=== PATIENT | female | born 1990 | race Caucasian/White ===

== ENCOUNTER 2018-04-14 10:58 | Emergency (ER) | payer OTHER ==
[~2018-04-14] VITALS: Ht 162.6 cm; Wt 95.3 kg
[2018-04-14 11:01] VITALS: BP 136/86; Ht 162.6 cm; Wt 95.3 kg
[2018-04-14 11:48] LABS: UA SPECIFIC GRAVITY >=1.030 (1.005-1.035); microscopic required? YES; urine erythrocyte NEGATIVE (NEGATIVE)
[2018-04-14 12:02] LABS: AMPHETAMINE QUAL UR POSITIVE (See below)
== END 2018-04-14 11:26 | disposition left against medical advice (07) ==
LOC: ED 10:58
PROVIDERS: Emergency Medicine
DX: F15.10 Other stimulant abuse, uncomplicated (principal)
CPT/HCPCS: 83880; G0480

== ENCOUNTER 2018-04-14 11:52 | Emergency (ER) | payer OTHER | END 2018-04-14 13:47 | disposition left against medical advice (07) | LOC: ED 11:52 | DX: Z53.21 Procedure and treatment not carried out due to patient leaving prior to being seen by health care provider (principal) ==